=== PATIENT | male | born 1960 | race Hispanic/Latino ===

== ENCOUNTER 2021-06-16 19:26 | Emergency (ER) | payer BC, SELFPAY ==
[2021-06-16] MEDS ORDERED: Lidocaine 1% PF 5 ML VIAL ONE (21:29)
[2021-06-16] MEDS ORDERED: Bacitracin 1 PK ONE (22:38)
== END 2021-06-16 22:53 | disposition home or self-care (01) ==
LOC: ERS 19:26
DX: S61.012A Laceration without foreign body of left thumb without damage to nail, initial encounter (principal); Z23 Encounter for immunization; W27.5XXA Contact with paper-cutter, initial encounter
CPT/HCPCS: 12001; 90471